=== PATIENT | female | born 1970 | race Caucasian/White ===

== ENCOUNTER 2023-05-19 02:53 | Emergency (ER) | payer OTHER ==
[2023-05-19 03:04] VITALS: BP 130/76; PULSE 95; RESP 18; TEMP 99.1; BMI 22.8
[2023-05-19 04:56] LABS: BASO % 1.4 % (0-2.0); EOS % 2.5 % (0-4.5); HEMOGLOBIN 13.1 GM/dL (10.7-15.3); LYMPH % 36.6 % (8-40); MCH 33.3 pg (25.7-33.7); MCHC 34.5 g/dl (32.0-36.0); MEAN CELL VOLUME 96.5 fl (80-96); MEAN PLT VOLUME 7.5 fl (7.5-11.1); MONO % 7.8 % (3.8-10.2); NEUT % 51.7 % (42.8-82.8); PLATELET COUNT 282 10^3/uL (134-434); RBC 3.94 M/mm3 (3.60-5.2); RDW 13.2 % (11.6-15.6); WHITE BLOOD COUNT 6.1 K/mm3 (4.0-10.0)
[2023-05-19 05:19] LABS: CALCIUM 8.7 mg/dL (8.5-10.1); POTASSIUM 4.2 mmol/L (3.5-5.1)
[2023-05-19 05:20] LABS: ALBUMIN 3.2 g/dl (3.4-5.0); BLOOD UREA NITROGEN 16.5 mg/dL (7-18)
[2023-05-19 05:24] LABS: BILIRUBIN,TOTAL 0.2 mg/dL (0.2-1); CREATININE 0.7 mg/dL (0.55-1.3)
== END 2023-05-19 03:40 | disposition left against medical advice (07) ==
LOC: FER 02:53
DX: R07.2 Precordial pain (principal); R06.02 Shortness of breath; R10.13 Epigastric pain
CPT/HCPCS: 36415; 80053; 84484; 85025; 93005; 99284-25